=== PATIENT | female | born 1975 | race Caucasian/White ===

== ENCOUNTER 2020-05-28 06:50 | Day surgery (SDC) | payer MEDICAID, SELFPAY ==
[~2020-05-28] VITALS: Ht 170.2 cm; Wt 111.1 kg
[2020-05-28 07:28] LABS: HCG,QUAL RESULT NEGATIVE (NEGATIVE)
[2020-05-28] MEDS ORDERED: fentaNYL CITRATE/PF 100 MCG/2 ML AMP ONE (07:29)
[2020-05-28] MEDS ORDERED: SIMETHICONE 40 MG/0.6 ML ML ONE (07:29)
[2020-05-28] MEDS ORDERED: MEPERIDINE HCL/PF 100 MG/ML AMP ONE (07:30)
[2020-05-28] MEDS ORDERED: MIDAZOLAM HCL 5 MG/5 ML VIAL ONE (07:30)
[2020-05-28 09:21] VITALS: BP_SYST 115
== END 2020-05-28 10:00 | disposition home or self-care (01) ==
LOC: SDS 06:50 → SMU 06:50 → SDS 10:00
PROVIDERS: ATTEND Internal Medicine Gastroenterology
DX: R10.13 Epigastric pain (principal); K29.70 Gastritis, unspecified, without bleeding; E11.9 Type 2 diabetes mellitus without complications; Z90.49 Acquired absence of other specified parts of digestive tract; E66.9 Obesity, unspecified; R74.8 Abnormal levels of other serum enzymes; K76.0 Fatty (change of) liver, not elsewhere classified; Z68.38 Body mass index [BMI] 38.0-38.9, adult; Z20.828 Contact with and (suspected) exposure to other viral communicable diseases
CPT/HCPCS: 36415; 43239; 82962; 84703; 87081; 88305; 88312; 88313; 96365; 99152; G0378; J2175; J2250; J7030; J7120; U0003; J3010